=== PATIENT | female | born 1975 ===

== ENCOUNTER 2017-12-23 13:24 | Emergency (ER) | payer MEDICAID ==
[2017-12-23 13:34] VITALS: BP 128/88; PULSE 71; RESP 20; TEMP 98; O2SAT 100
--- NOTE | 2017-12-23 14:09 | C.PDOC ---
History Of Present Illness 42yo female, comes to ER complaining of anterior chest wall discomfort since earlier today. Patient states she went to the pharmacy to check her blood pressure and noted it was mildly elevated, prompting ER visit. She denies any headache, weakness, substernal chest pain or shortness of breath. No other complaints. Time Seen by Provider: 12/23/17 13:58 Chief Complaint (Nursing): High Blood Pressure History Per: Patient History/Exam Limitations: no limitations Onset/Duration Of Symptoms: Hrs Past Medical History Reviewed: Historical Data, Nursing Documentation, Vital Signs Vital Signs: Last Vital Signs Temp 98 F 12/23/17 13:28 Pulse 71 12/23/17 13:28 Resp 20 12/23/17 13:28 BP 128/88 12/23/17 13:28 Pulse Ox 100 12/23/17 14:09 - Medical History PMH: HTN Surgical History: No Surg Hx Family History: States: No Known Family Hx - Social History Hx Tobacco Use: No Hx Alcohol Use: No Hx Substance Use: No - Immunization History Hx Tetanus Toxoid Vaccination: No Hx Influenza Vaccination: No Hx Pneumococcal Vaccination: No Review Of Systems Except As Marked, All Systems Reviewed And Found Negative. Constitutional: Negative for: Fever, Chills Cardiovascular: Positive for: Chest Pain Respiratory: Negative for: Shortness of Breath Physical Exam - Physical Exam Appears: Non-toxic, No Acute Distress Skin: Normal Color Head: Atraumatic, Normacephalic Eye(s): bilateral: Normal Inspection Neck: Normal ROM, Supple Chest: Symmetrical, Tenderness (bilateral parasternal border tenderness) Cardiovascular: Rhythm Regular Respiratory: Normal Breath Sounds Gastrointestinal/Abdominal: Normal Exam, Soft Back: Normal Inspection Extremity: Normal ROM Neurological/Psych: Oriented x3 ED Course And Treatment ECG: Interpreted By Me ECG Rhythm: Sinus Rhythm ECG Interpretation: Normal Rate From EC O2 Sat by Pulse Oximetry: 100 (RA) Pulse Ox Interpretation: Normal Medical Decision Making Medical Decision Making: 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 Disposition Doctor Will See Patient In The: Office Counseled Patient/Family Regarding: Studies Performed, Diagnosis - Disposition Referrals: Daphnie Arreguin MD [Medical Doctor] - Disposition: HOME/ ROUTINE Disposition Time: 14:09 Condition: GOOD Additional Instructions: bolsa de hielo en [place]arcia pecho 1/2 hora por hora, nada caliente ibuprofeno 400-600 mg cada 6 horas sugey necessario Trabajo normal. Instructions: Costochondritis Forms: [facility] (Chadian) Print Language: SWAZI - Clinical Impression Clinical Impression: Chest wall discomfort - Scribe Statement The provider has reviewed the documentation as recorded by the Shaylaibabimael Mcintosh Provider Attestation: All medical record entries made by the Shaylaibabimael were at my direction and personally dictated by me. I have reviewed the chart and agree that the record accurately reflects my personal performance of the history, physical exam, medical decision making, and the department course for this patient. I have also personally directed, reviewed, and agree with the discharge instructions and disposition.
--- NOTE | 2017-12-24 18:31 | CARD ---
APPROVED REPORT Date of service: 12/23/2017 EKG Measurement Heart [id number] VT [id number] <Conclusion> Normal sinus rhythm Normal ECG
== END 2017-12-23 14:22 | disposition home or self-care (01) ==
LOC: C.ER 13:24
DX: R07.89 Other chest pain (principal); I10 Essential (primary) hypertension